=== PATIENT | male | born 1985 | race Asian ===

== ENCOUNTER 2019-01-17 18:36 | Emergency (ER) | payer BC ==
[~2019-01-17] VITALS: Ht 185.4 cm; Wt 83.9 kg
[2019-01-17 18:51] VITALS: BP_SYST 127
[2019-01-17] MEDS ORDERED: LIDOCAINE/PRILOCAINE 5 GM CREAM (EMLA) TP ONE (20:00)
[2019-01-17] MEDS ORDERED: HYDROcodone/ACETAMIN 5-325 MG TAB (NORCO/ VICODIN) PO ONE (20:00)
== END 2019-01-17 20:22 | disposition home or self-care (01) ==
LOC: SED 18:36
DX: K64.8 Other hemorrhoids (principal)
CPT/HCPCS: 99283